=== PATIENT | male | born 1970 | race Caucasian/White ===

== ENCOUNTER 2020-12-25 06:15 | Day surgery (SDC) | payer OTHER ==
[~2020-12-25 06:15] MED LIST: PRINIVIL20 MG PO
[2020-12-25] MEDS ORDERED: PERCOCET 5-3251 EACH PO (12:24)
== END 2020-12-25 16:35 | disposition home or self-care (01) ==
LOC: CIR.AMB 06:15
PROVIDERS: ATTEND Surgery
DX: K64.4 Residual hemorrhoidal skin tags (principal); K64.8 Other hemorrhoids; Z20.822 Contact with and (suspected) exposure to COVID-19